=== PATIENT | female | born 1985 | race Caucasian/White ===

== ENCOUNTER 2017-08-26 13:20 | Emergency (ER) | payer SELFPAY ==
[2017-08-26] MEDS: KETOROLAC 30 MG INJ IM (15:05)
[2017-08-26 15:25] LABS: ADD UMIC YES; UR ASCORBIC ACID NEGATIVE (NEGATIVE); UR BILIRUBIN (Dip) NEGATIVE (NEGATIVE); UR BLOOD (Dip) 1+ mg/dL (NEGATIVE); UR CLARITY CLEAR (CLEAR); UR COLOR YELLOW (YELLOW); UR GLUCOSE (Dip) NEGATIVE (NEGATIVE); UR KETONES (Dip) NEGATIVE (NEGATIVE); UR LEUKOCYTE ESTERASE (Dip) TRACE Leu/ul (NEGATIVE); UR NITRITE (Dip) NEGATIVE (NEGATIVE); UR RBC 3 /HPF (0-5); UR SPECIFIC GRAVITY (Dip) 1.015 (1.003-1.030); UR SQUAMOUS EPITHELIAL CELL FEW /HPF (FEW); UR TOTAL PROTEIN (Dip) NEGATIVE (NEGATIVE); UR UROBILINOGEN (Dip) NEGATIVE (NEGATIVE); UR WBC 0 /HPF (0-5)
== END 2017-08-26 15:56 | disposition home or self-care (01) ==
LOC: FTE 13:20
DX: M54.41 Lumbago with sciatica, right side (principal)
CPT/HCPCS: 72100; 81001; 81025; 87086; 96372; 99284-25

== ENCOUNTER 2017-11-01 20:22 | Emergency (ER) | payer MEDICAID | END 2017-11-01 23:41 | disposition home or self-care (01) | LOC: FTE 20:22 | DX: J40 Bronchitis, not specified as acute or chronic (principal) | CPT/HCPCS: 99283; Z7502 ==

== ENCOUNTER 2017-11-05 18:26 | Emergency (ER) | payer MEDICAID ==
[2017-11-05] MEDS: BENZONATATE 100 MG CAP PO (21:23)
== END 2017-11-05 22:33 | disposition home or self-care (01) ==
LOC: FTE 18:26
DX: R05 Cough (principal)
CPT/HCPCS: 71046; 99283-25

== ENCOUNTER 2018-05-24 21:07 | Emergency (ER) | payer MEDICAID ==
[2018-05-25] MEDS: DEXAMETHASONE 10 MG/ML 1 ML INJ IM (01:57)
[2018-05-25] MEDS: IBUPROFEN 600 MG TAB PO (02:09)
== END 2018-05-25 02:29 | disposition home or self-care (01) ==
LOC: FTE 21:07
DX: J02.9 Acute pharyngitis, unspecified (principal)
CPT/HCPCS: 96372; 99284-25

== ENCOUNTER → 2018-08-19 | Emergency (ER) | payer MEDICAID ==
[2018-08-19] MEDS: PROMETHAZINE/CODEINE 5ML CUP PO (19:50)
[2018-08-19] MEDS: KETOROLAC 60 MG INJ IM (19:51)
== END | disposition home or self-care (01) ==
LOC: FTE 19:20
DX: J06.9 Acute upper respiratory infection, unspecified (principal)
CPT/HCPCS: 71045; 81025; 96372; 99284-25

== ENCOUNTER 2018-08-24 10:48 | Emergency (ER) | payer MEDICAID ==
[2018-08-24] MEDS: DEXAMETHASONE 10 MG/ML 1 ML INJ IM (12:33)
[2018-08-24] MEDS: IPRATROPIUM (NEB) 0.5 MG/2.5 ML AMP NEB (12:42)
[2018-08-24] MEDS: ALBUTEROL 0.083% (NEB) 2.5 MG/3 ML AMP NEB (12:42)
== END 2018-08-24 14:46 | disposition home or self-care (01) ==
LOC: FTE 10:48
DX: J20.9 Acute bronchitis, unspecified (principal); J04.0 Acute laryngitis
CPT/HCPCS: 71045; 94664; 96372; 99284-25